=== PATIENT | male | born 1975 ===

== ENCOUNTER 2020-04-22 20:17 | Inpatient (IN) | payer MEDICAID, OTHER ==
[~2020-04-22] VITALS: Ht 190.5 cm; Wt 129.0 kg
[2020-04-22] MEDS: D5%-0.45NACL+KCL 20MEQ 1,000 ML IV SCH (01:45)
[2020-04-22 20:43] LABS: O2 FLOW ROOM AIR L/min
--- NOTE | 2020-04-22 20:45 | NUR ---
BIB [facility] FROM [facility] IN [place]. PT STATES HAVING NO HISTORY OTHER THAN ETOH. HAD INITAL BS IN THE 'S, WAS GIVEN 2 L NS AND 8 UNITS SUBQ INSULIN AT THE HOSPITAL. PT STARTED ON INSULIN DRIP IN [facility]. 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 PT STATES FEELING NO PAIN, DENIES SOB, AND IS RESTING COMFORTABLY IN BED. PT STATES JUST FEELING DROWSY AND DRY MOUTH. PT PLACED ON ALL MONITORS, ERP EVALUATED PT, EKG DONE, AWAITING LAB ORDERS. NO OTHER NEEDS AT THIS TIME
[2020-04-22 20:51] LABS: BASOPHILS % (AUTO) 1 % (0-1); EOSINOPHILS % (AUTO) 0 % (1-7); LYMPHOCYTES % (AUTO) 9 % (22-44); MEAN CORPUSCULAR HEMOGLOBIN 34.9 pg (27.5-34.5); MEAN CORPUSCULAR HGB CONC 33.3 g/dL (33.2-36.2); MEAN PLATELET VOLUME 10.4 fL (7.4-10.4); MONOCYTES % (AUTO) 13 % (2-9); NEUTROPHILS % (AUTO) 77 % (42-75); PLATELET COUNT 156 x10^3/uL (130-400); RED BLOOD COUNT 4.41 x10^6/uL (4.38-5.82); RED CELL DISTRIBUTION WIDTH 13.7 % (9.4-14.8)
[2020-04-22 20:52] LABS: ALANINE AMINOTRANSFERASE 185 U/L (12-78); ALBUMIN 3.4 g/dL (3.4-5.0); ANION GAP 18 mmol/L (5-15); CALCIUM 8.4 mg/dL (8.5-10.1); CHLORIDE 103 mmol/L (98-107); CREATININE 1.66 mg/dL (0.7-1.3)
[2020-04-22 20:54] LABS: ALKALINE PHOSPHATASE 208 U/L (45-117); TOTAL PROTEIN 8.4 g/dL (6.4-8.2)
[2020-04-22 20:55] LABS: MD NO
[2020-04-22] MEDS ORDERED: REGULAR INSULIN 100 UNITS in SODIUM CHLORIDE 0.9% 99 ML IV PRN ×2 (21:00→22:30)
[2020-04-22] MEDS ORDERED: SODIUM CHLORIDE 0.9% 1,000ML IVBOLUS ONE ×2 (21:00→22:30)
[2020-04-22 21:03] LABS: ACETONE, SERUM Large (80mg/dL) (Negative)
[2020-04-22] MEDS ORDERED: POTASSIUM CHLORIDE 20 MEQ TAB.ER.PRT ONE (21:17)
[2020-04-22] MEDS ORDERED: NS + 40MEQ KCL 1,000 ML IV ONE (21:18)
[2020-04-22] MEDS ORDERED: POTASSIUM CHLORIDE 40 MEQ in SODIUM CHLORIDE 0.9% 500 ML IV ONE (21:30)
[2020-04-22] MEDS ORDERED: POTASSIUM CHLORIDE 20 MEQ TAB.ER.PRT PO ONE (21:30)
[2020-04-22 21:48] LABS: MICROSCOPIC INDICATED
[2020-04-22] MEDS ORDERED: LACTULOSE 10 GM/15 ML UDC PO PRN (22:30)
[2020-04-22] MEDS ORDERED: ENALAPRILAT 1.25 MG/ML, 2ML IVPush PRN (22:30)
[2020-04-22] MEDS ORDERED: DOCUSATE 100 MG CAPSULE PO PRN (22:30)
[2020-04-22] MEDS ORDERED: ONDANSETRON 2MG/ML, 2ML IV PRN (22:30)
[2020-04-22] MEDS ORDERED: SODIUM BICARB 8.4%, 50ML SYRINGE IVPB ONE (22:30)
[2020-04-22] MEDS ORDERED: MORPHINE SULFATE 4 MG/ML, 1ML IVPush PRN (22:30)
[2020-04-22] MEDS ORDERED: OXYcodone IR 5MG TABLET PO PRN (22:30)
[2020-04-22] MEDS ORDERED: SODIUM CHLORIDE 0.9% 1,000 ML IV SCH (22:30)
[2020-04-22 22:42] LABS: ANION GAP 17 mmol/L (5-15); CALCIUM 8.7 mg/dL (8.5-10.1); CHLORIDE 106 mmol/L (98-107); CREATININE 1.57 mg/dL (0.7-1.3)
--- NOTE | 2020-04-22 22:56 | NUR ---
REPORT GIVEN TO EDITH POON. PT BLOOD SUGAR DROPPED MORE THAN 10 PERCENT, INSULIN NOT ADJUSTED. RN AWARE. PT OK WITH POC, NO NEEDS AT THIS TIME
[2020-04-23] MEDS ORDERED: SODIUM PHOSPHATE 30 MMOL in SODIUM CHLORIDE 0.9% 500 ML IV ONE
[2020-04-23 00:14] VITALS: BP 126/68
[2020-04-23 03:08] LABS: ANION GAP 13 mmol/L (5-15); CALCIUM 8.1 mg/dL (8.5-10.1); CHLORIDE 113 mmol/L (98-107); CREATININE 1.25 mg/dL (0.7-1.3)
[2020-04-23 07:19] LABS: ANION GAP 12 mmol/L (5-15); CALCIUM 7.8 mg/dL (8.5-10.1); CHLORIDE 115 mmol/L (98-107); CREATININE 1.29 mg/dL (0.7-1.3)
[2020-04-23] MEDS ORDERED: POTASSIUM CHLORIDE 20 MEQ PACKET PO SCH (08:00)
[2020-04-23] MEDS: D5%-0.45NACL+KCL 20MEQ 1,000 ML IV SCH ×2 (09:15→19:36)
[2020-04-23 11:48] LABS: ANION GAP 11 mmol/L (5-15); CALCIUM 8.1 mg/dL (8.5-10.1); CHLORIDE 113 mmol/L (98-107); CREATININE 1.35 mg/dL (0.7-1.3)
[2020-04-23] MEDS ORDERED: POTASSIUM CHLORIDE 20 MEQ TAB.ER.PRT PO ONE ×4 (14:00→21:00)
[2020-04-23 15:23] LABS: ANION GAP 12 mmol/L (5-15); CALCIUM 8.1 mg/dL (8.5-10.1); CHLORIDE 109 mmol/L (98-107); CREATININE 1.19 mg/dL (0.7-1.3)
[2020-04-23 19:20] LABS: ANION GAP 9 mmol/L (5-15); CALCIUM 7.9 mg/dL (8.5-10.1); CHLORIDE 109 mmol/L (98-107)
[2020-04-23] MEDS ORDERED: POTASSIUM CHLORIDE 20 MEQ in SODIUM CHLORIDE 0.9% 250 ML IV ONE (21:00)
[2020-04-23 23:35] LABS: ANION GAP 9 mmol/L (5-15); CHLORIDE 109 mmol/L (98-107)
[2020-04-24] MEDS: D5%-0.45NACL+KCL 20MEQ 1,000 ML IV SCH (03:37)
[2020-04-24 03:44] LABS: ANION GAP 6 mmol/L (5-15); CHLORIDE 110 mmol/L (98-107); CREATININE 1.05 mg/dL (0.7-1.3)
[2020-04-24 07:17] LABS: ANION GAP 8 mmol/L (5-15); CHLORIDE 111 mmol/L (98-107)
[2020-04-24] MEDS ORDERED: SODIUM CHLORIDE 0.9% IV ONE (08:00)
[2020-04-24] MEDS ORDERED: SODIUM PHOSPHATE IV ONE (08:00)
[2020-04-24] MEDS: INSULIN GLARGINE 100 UNITS/ML, PEN SQ-INSULIN SCH ×2 (08:12→21:28)
[2020-04-24] MEDS: POTASSIUM CHLORIDE 40 MEQ in SODIUM CHLORIDE 0.45% 1,000 ML IV SCH ×2 (10:53→20:07)
[2020-04-24] MEDS: INSULIN LISPRO 100 UNITS/ML, PEN SQ-INSULIN SCH ×3 (11:09→21:28)
[2020-04-24 13:21] LABS: CHLORIDE 109 mmol/L (98-107)
[2020-04-24 13:28] LABS: ANION GAP 12 mmol/L (5-15); CALCIUM 8.2 mg/dL (8.5-10.1); CREATININE 0.93 mg/dL (0.7-1.3)
[2020-04-24 14:00] VITALS: BP 125/80
[2020-04-24 20:04] VITALS: BP 117/77
[2020-04-25 03:57] VITALS: BP 108/76
[2020-04-25 06:18] LABS: CHLORIDE 105 mmol/L (98-107)
[2020-04-25 06:27] LABS: ANION GAP 13 mmol/L (5-15); CALCIUM 8.5 mg/dL (8.5-10.1); CREATININE 0.94 mg/dL (0.7-1.3)
[2020-04-25 07:01] VITALS: BP 123/79
[2020-04-25] MEDS: INSULIN LISPRO 100 UNITS/ML, PEN SQ-INSULIN SCH ×4 (08:22→22:09)
[2020-04-25] MEDS: INSULIN GLARGINE 100 UNITS/ML, PEN SQ-INSULIN SCH ×2 (08:24→22:10)
[2020-04-25] MEDS: POTASSIUM CHLORIDE 20 MEQ TAB.ER.PRT PO SCH ×3 (08:24→17:31)
[2020-04-25] MEDS: SPIRONOLACTONE 25 MG TABLET PO SCH ×2 (08:24→21:19)
[2020-04-25 12:58] VITALS: BP 109/71
[2020-04-25] MEDS ORDERED: POTASSIUM PHOSPHATE 44 MEQ in SODIUM CHLORIDE 0.9% 500 ML IV ONE (13:00)
[2020-04-25 20:00] VITALS: BP 104/68
[2020-04-26 01:11] VITALS: BP 97/59
[2020-04-26 06:26] LABS: CHLORIDE 104 mmol/L (98-107)
[2020-04-26 06:33] LABS: ANION GAP 11 mmol/L (5-15); CALCIUM 8.6 mg/dL (8.5-10.1); CREATININE 0.82 mg/dL (0.7-1.3)
[2020-04-26 06:42] LABS: BASOPHILS % (AUTO) 1 % (0-1); EOSINOPHILS % (AUTO) 4 % (1-7); LYMPHOCYTES % (AUTO) 21 % (22-44); MEAN CORPUSCULAR HEMOGLOBIN 34.9 pg (27.5-34.5); MEAN CORPUSCULAR HGB CONC 34.2 g/dL (33.2-36.2); MONOCYTES % (AUTO) 21 % (2-9); NEUTROPHILS % (AUTO) 53 % (42-75); PLATELET COUNT 141 x10^3/uL (130-400); RED BLOOD COUNT 4.11 x10^6/uL (4.38-5.82); RED CELL DISTRIBUTION WIDTH 14.1 % (9.4-14.8)
[2020-04-26 07:16] VITALS: BP 107/70
[2020-04-26 07:37] LABS: MD SCAN
[2020-04-26] MEDS: POTASSIUM CHLORIDE 20 MEQ TAB.ER.PRT PO SCH ×3 (07:55→16:27)
[2020-04-26] MEDS: SPIRONOLACTONE 25 MG TABLET PO SCH ×2 (07:55→20:50)
[2020-04-26] MEDS: INSULIN LISPRO 100 UNITS/ML, PEN SQ-INSULIN SCH ×4 (07:56→20:51)
[2020-04-26] MEDS: INSULIN GLARGINE 100 UNITS/ML, PEN SQ-INSULIN SCH ×2 (07:56→20:51)
[2020-04-26] MEDS ORDERED: MAGNESIUM SULFATE PMX 4GM/100M 100 ML IVPB ONE (08:30)
[2020-04-26 12:33] VITALS: BP 125/88
[2020-04-26 20:17] VITALS: BP 119/78
[2020-04-27 02:01] VITALS: BP 108/65
[2020-04-27 06:20] LABS: ALBUMIN 2.8 g/dL (3.4-5.0); ANION GAP 8 mmol/L (5-15); CALCIUM 8.3 mg/dL (8.5-10.1); CHLORIDE 102 mmol/L (98-107)
[2020-04-27 06:24] LABS: ALANINE AMINOTRANSFERASE 262 U/L (12-78); ALKALINE PHOSPHATASE 201 U/L (45-117); BILIRUBIN,TOTAL 0.6 mg/dL (0.2-1.0); CREATININE 0.81 mg/dL (0.7-1.3); TOTAL PROTEIN 7.1 g/dL (6.4-8.2)
[2020-04-27 06:57] VITALS: BP 108/71
[2020-04-27] MEDS: POTASSIUM CHLORIDE 20 MEQ TAB.ER.PRT PO SCH (08:13)
[2020-04-27] MEDS: SPIRONOLACTONE 25 MG TABLET PO SCH (08:13)
[2020-04-27] MEDS: INSULIN LISPRO 100 UNITS/ML, PEN SQ-INSULIN SCH ×2 (08:16→12:20)
[2020-04-27] MEDS: INSULIN GLARGINE 100 UNITS/ML, PEN SQ-INSULIN SCH (08:16)
[2020-04-27] MEDS ORDERED: POTA20TA6 PO (09:38)
[2020-04-27] MEDS ORDERED: INSU100I11 SQ-INSULIN (09:38)
[2020-04-27] MEDS ORDERED: INSU100I13 SQ-INSULIN (09:38)
[2020-04-27] MEDS ORDERED: SPIR25TA PO (09:38)
[2020-04-27] MEDS ORDERED: FLU VACC QS2020-21(6MOS UP)/PF 60MCG/0.5 ML SYR IM-VACC ONE (11:30)
== END 2020-04-27 12:40 | disposition home or self-care (01) | DRG 420 ==
LOC: ED 21:09 → EDIP 21:45 → CCU 22:59 → 3N 04-24 19:17 → DCLOUNGE 04-27 12:33
PROVIDERS: ADMIT Internal Medicine; ATTEND Hospitalist
DX: E10.10 Type 1 diabetes mellitus with ketoacidosis without coma (principal); F10.10 Alcohol abuse, uncomplicated; Y90.9 Presence of alcohol in blood, level not specified; E87.6 Hypokalemia; E86.0 Dehydration; Z79.899 Other long term (current) drug therapy; E66.01 Morbid (severe) obesity due to excess calories; N17.0 Acute kidney failure with tubular necrosis; E83.39 Other disorders of phosphorus metabolism; Z68.35 Body mass index [BMI] 35.0-35.9, adult
CPT/HCPCS: 36415; 80048; 80053; 81001; 82010; 82803; 82962; 83036; 83690; 83735; 84100; 84681; 85025; 87081; 90686; 93005; 99291; G0378; J1815; J3480; J3475; J7030; J7040; J7050